=== PATIENT | male | born 1985 | race Caucasian/White ===

== ENCOUNTER 2024-03-16 01:23 | Emergency (ER) | payer OTHER, SELFPAY ==
[2024-03-16 01:25] VITALS: BP 160/106
--- NOTE | 2024-03-16 03:30 | ED.GENMED ---
History of Present Illness
General
Chief Complaint: Dental Problem
Source: patient
Exam Limitations: none
Time Seen by Provider: 03/16/24 03:16
Nursing documentation reviewed up to this point in time: agreed with
History of Present Illness
History of Present Illness:
39-year-old male left upper molar pain had filling drill today needs a root canal had a lot of pain after the Novocain wore off scheduled to have a root canal soon on no meds at home for pain on no antibiotics
Past History
Social History
Tobacco: Non-smoker
Alcohol: None
Drug: None
Living: with family
Employment: Employed
Review of Systems
Review of Systems
All Other Systems: Not applicable
Constitutional: Denies fever
EENT: Reports other (Dental pain)
Phy Exam
Physical Exam
Physical Exam:
Physical Exam
General: no apparent distress, not acutely ill
Neck: Left upper molar tender to tap no abscess no trismus
Lungs: no acute respiratory distress.
Neuro: alert and oriented. no focal neurological deficits
Skin: no rash
Psychiatric: well kept. interactive and cooperative
Extremities: no edema.
Course
Vital Signs
Initial and Last Documented VS:
Initial Vital Signs
Temp Pulse Resp BP Pulse Ox
98.1 F 88 22 160/106 98
03/16/24 01:25 03/16/24 01:25 03/16/24 01:25 03/16/24 01:25 03/16/24 01:25
Last Documented Vital Signs
Temp Pulse Resp BP Pulse Ox
98.1 F 88 22 160/106 98
03/16/24 01:25 03/16/24 01:25 03/16/24 01:25 03/16/24 01:25 03/16/24 01:25
Procedures
Dentalgia
Dental Block: Nerve Block
Bupivacaine 0.5%/Epi Dental cartridge administered?: Yes
Pt tolerated procedure well w/ no immediate adverse effects?: Yes
Other: Left upper molar blocked with 2 cc of lidocaine 2 cc of Marcaine
MDM/Problems Addressed
Differential Diagnosis Includes:
Dental pain abscess postop pain
MDM/Problems Addressed:
Dental pain
*Critical Care Note
Total Time (30-74mins, 75-104mins- exclusive of procedures): Not Applicable
Update Note
Update Note:
Will block started on p.o. antibiotics and p.o. pain
ED Attending Note
-
Portions of this chart may have been created with voice recognition software.� Occasional wrong word or��sound alike� substitutions may have occurred due to the inherent limitations of voice recognition software.
Discharge Plan
Departure
Patient Disposition: Home (Routine Discharge)
Date of Disposition: 03/16/24
Time of Disposition: 03:32
Patient with high blood pressure during this ER visit?: Yes
Condition: Good
Discharge Problem:
Pain, dental
Instructions: Dental Pain (DC)
Prescriptions:
New
ibuprofen 600 mg tablet
600 mg PO Q8H PRN (Reason: Pain) Qty: 14 0RF
penicillin V potassium 250 mg tablet
250 mg PO Q6H 7 Days Qty: 28 0RF
oxycodone-acetaminophen [Percocet] 5-325 mg tablet
1 tab PO Q4HPRN PRN (Reason: pain) Qty: 10 0RF
Activity Restrictions/Additional Instructions:
Follow-up with your dentist
Discharge Date and Time
Print Language: YORUBA
[2024-03-16] MEDS: PEN VK 250 MG PO (04:18)
[2024-03-16] MEDS: MOTRIN 600 MG PO (04:19)
== END 2024-03-16 04:22 | disposition home or self-care (01) ==
LOC: EMR 01:23
PROVIDERS: EMERGENCY PHYSICIAN Emergency Medicine
DX: K08.89 Other specified disorders of teeth and supporting structures (principal)
CPT/HCPCS: 99282; 64400